=== PATIENT | male | born 1945 | race Hispanic/Latino ===

== ENCOUNTER 2019-10-29 17:23 | Emergency (ER) | payer SELFPAY ==
[~2019-10-29] VITALS: Ht 165.1 cm; Wt 90.7 kg
--- NOTE | 2019-10-29 17:46 | Emergency Department Note ---
History of Present Illnes History of Present Illness Chief Complaint: COVID PUI History of Present Illness This is a 73 year old male arrives to the ED after his tested positive for the coronavirus. Patient states he was told to come to the emergency department by his doctor. Patient complaining of generalized malaise and fever. . Historian: Patient Arrival Mode: Car Severity: mild Onset quality: gradual Duration (how long): day(s) Timing of current episode: constant Progression: unchanged Chronicity: new Context: Reports recent illness Relieving factors: none Past Medical/Family History Physician Review I have reviewed the patient's past medical and family history. Any updates have been documented here. Past Medical History Recent Fever: No Clinical Suspicion of Infectio: Yes New/Unexplained Change in Ment: No Past Medical History: Diabetes, Hyperlipedemia Past Surgical History: Knee Replacement Other Surgery: LEFT HAND SX RIGHT SHOULDER SX Social History Physically hurt or threatened: No Review of Systems Review of Systems Constitutional: Reports chills, Reports fever, Reports malaise, Reports weakness EENTM: Reports no symptoms Cardiovascular: Reports no symptoms Gastrointestinal: Reports no symptoms Genitourinary: Reports no symptoms Musculoskeletal: Reports no symptoms Integumentary: Reports no symptoms Neurological: Reports no symptoms Psychological: Reports no symptoms Endocrine: Reports no symptoms Hematological/Lymphatic: Reports no symptoms Physical Exam Related Data Allergies: Coded Allergies: No Known Allergies (Unverified , 10/29/19) Triage Vital Signs Vital Signs Date Time Temp Pulse Resp B/P (MAP) Pulse Ox O2 Delivery O2 Flow Rate FiO2 10/29/19 17:36 98.5 81 18 134/79 98 Room Air Vital signs reviewed: Yes Physical Exam CONSTITUTIONAL Constitutional: Present well-developed, Present well-nourished HENT HENT: Present normocephalic, Present atraumatic, Present oropharynx clear/moist, Present nose normal HENT L/R: Present left ext ear normal, Present right ext ear normal EYES Eyes: Reports PERRL, Reports conjunctivae normal NECK Neck: Present ROM normal PULMONARY Pulmonary: Present effort normal, Present breath sounds normal CARDIOVASCULAR Cardiovascular: Present regular rhythm, Present heart sounds normal, Present capillary refill normal, Present normal rate GASTROINTESTINAL Abdominal: Present soft, Present nontender, Present bowel sounds normal GENITOURINARY Genitourinary: Present exam deferred SKIN Skin: Present warm, Present dry MUSCULOSKELETAL Musculoskeletal: Present ROM normal NEUROLOGICAL Neurological: Present alert, Present oriented x 3, Present no gross motor or sensory deficits PSYCHOLOGICAL Psychological: Present mood/affect normal, Present judgement normal Assessment & Plan Medical Decision Making MDM 73-year-old well-appearing male arrives to the ED with complaints of cough fever loss of taste and smell. Patient is clinically presenting with signs and symptoms consistent with Covid 19. Patient informed he is positive until proven otherwise. Patient's oxygen saturation remained 99% even on exertion, no evidence of tachypnea or dyspnea noted in the ED. Spoke present length about the importance of sleeping on his stomach and rotating from side to side. Z-Mohan and Decadron given, signs and symptoms for return discussed. In the light of the Covid pandemic, disaster medicine care was given- patient understands why he was not tested for Covid 19 in the ED, no indications for a chest x-ray at this time given normal oxygen saturation and respiratory status. Assessment & Plan Final Impression: (1) COVID-19 Depart Disposition: HOME, SELF-CARE Last Vital Signs Date Time Temp Pulse Resp B/P (MAP) Pulse Ox O2 Delivery O2 Flow Rate FiO2 10/29/19 17:36 98.5 81 18 134/79 98 Room Air ROEL BECERRA DO Oct 29, 2019 17:46
== END 2019-10-29 17:43 | disposition home or self-care (01) ==
LOC: ER 17:39
DX: U07.1 COVID-19 (principal); R53.81 Other malaise; E11.9 Type 2 diabetes mellitus without complications; E78.5 Hyperlipidemia, unspecified
CPT/HCPCS: 99282